=== PATIENT | male | born 1985 | race Caucasian/White ===

== ENCOUNTER 2019-05-28 19:37 | Emergency (ER) | payer OTHER ==
[~2019-05-28] VITALS: Ht 175.3 cm; Wt 104.3 kg
[2019-05-28 20:00] LABS: HEMATOCRIT 47.1 % (42.0-52.0); HEMOGLOBIN 16.7 gm/dL (14.0-18.0); MCH 30.2 pg (26.0-34.0); MCHC 35.5 g/dL (28.0-37.0); MCV 85.1 fL (80.0-100.0); MPV 6.5 fl. (7.2-11.1); NUCLEATED RBCS 0 /100WBC; PLATELET COUNT* 254 thou/uL (150-400); RBC 5.53 mil/uL (4.50-6.00); WBC 10.8 thou/uL (4.0-11.0)
[2019-05-28 20:13] LABS: CALCIUM 9.5 mg/dL (8.5-10.1); CREATININE 0.9 mg/dL (0.6-1.3); POTASSIUM 3.4 mmol/L (3.5-5.1)
[2019-05-28 20:14] LABS: INR 1.1; PROTIME 10.8 Seconds (9.20-11.50)
[2019-05-28 20:24] LABS: ALBUMIN 4.3 g/dL (3.4-5.0); TOTAL BILIRUBIN 0.8 mg/dL (<0.1-1.0); TOTAL PROTEIN 8.3 g/dL (6.4-8.2)
[2019-05-28 20:33] LABS: URINE BLOOD 2+ (Negative); URINE CLARITY CLEAR; URINE COLOR YELLOW; URINE GLUCOSE-RANDOM NEGATIVE (Negative); URINE KETONES 2+ (Negative); URINE LEUKOCYTES-REFLEX NEGATIVE (Negative); URINE NITRITE-REFLEX NEGATIVE (Negative); URINE PROTEIN 3+ (Negative); URINE SPECIFIC GRAVITY >= 1.030 (1.005-1.030); URINE UROBILINOGEN 0.2 E.U./dl (0.2-1.0)
[2019-05-28 20:38] LABS: ICTOTEST (BILI CONFIRMATORY) Negative (Negative); URINE BILIRUBIN 1+ (Negative)
[2019-05-28 20:41] LABS: AMP/METHAMP Negative (Negative); BARBITURATES Negative (Negative); BENZODIAZEPINES Negative (Negative); COCAINE Negative (Negative); METHADONE Negative (Negative); OPIATES Negative (Negative); PCP Negative (Negative); THC Negative (Negative)
[2019-05-28 20:56] LABS: HYALINE CASTS >10 Many /LPF (None Seen); SQUAMOUS NONE SEEN /LPF (0-3); URINE WBC-REFLEX 0-5 Rare /HPF (0-5)
[2019-05-28 20:57] LABS: BACTERIA-REFLEX 1-9 Few /HPF (None Seen); MUCUS 0-3 Light strn/LPF (None Seen); URINE RBC 0-2 Rare /HPF (0-2)
[2019-05-28 20:58] LABS: CRYSTALS None Seen /LPF (None Seen)
[2019-05-28 20:59] LABS: ABSOLUTE BASOPHILS 0.2 thou/uL (0.0-0.2); ABSOLUTE MONOCYTES 0.2 thou/uL (0.0-1.2); ABSOLUTE NEUTROPHILS 9.4 thou/uL (1.6-8.1); PLATELET ESTIMATE ADEQUATE
[2019-05-28] MEDS ORDERED: METOPROLOL TAR100 MG PO (21:13)
[2019-05-28] MEDS ORDERED: PRINIVIL10 MG PO (21:13)
[2019-05-28 23:25] VITALS: BP 168/108
--- NOTE | 2019-05-29 09:44 | EKG ---
[place] [address] ELECTROCARDIOGRAM REPORT Name: THOMAS FRANKLIN [id number] Admission: 05/28/19 Attend Phys: Discharge: 05/28/19 Date of : 81 Report #: [id number] THIS REPORT FOR: //name// [facility] ED Test Date: 2019-05-28 Test Time: 19:44:11 Pat Name: THOMAS FRANKLIN Department: Room: Gender: M Eligibility Analyst: JENNA : 1985 Requested By: Darcy Akers Order Number: [id number] MD: Jas Williamson Measurements Intervals [place] Rate: 133 P: 63 AK: 145 QRS: 38 QRSD: 81 T: -3 QT: 290 QTc: 432 Interpretive Statements Sinus tachycardia Left atrial enlargement Borderline repolarization abnormality Baseline wander in lead(s) V1 No previous ECG available for comparison Electronically Signed On 05-29-2019 9:44:25 MEDICAID ANALYST by Jas Williamson [email or web address] <ELECTRONICALLY SIGNED> By: Jas Williamson MD, [facility] 05/29/19 0944 [id number] Jas Williamson MD, FACC /EPI
== END 2019-05-28 23:25 | disposition home or self-care (01) ==
LOC: M.ERS 19:37
PROVIDERS: Emergency Medicine
DX: I16.0 Hypertensive urgency (principal)